=== PATIENT | female | born 1945 | race Asian ===

== ENCOUNTER 2020-03-26 20:56 | Inpatient (IN) | payer OTHER, SELFPAY ==
[~2020-03-26] VITALS: Ht 167.6 cm; Wt 80.7 kg
[2020-03-26 21:05] VITALS: BP 122/71
--- NOTE | 2020-03-26 21:09 | NUR ---
To Ed bed 04
--- NOTE | 2020-03-26 21:15 | NUR ---
Ever, son and coal trammer, sitting in lobby and instructed to come in when doctor needs him.
--- NOTE | 2020-03-26 21:20 | NUR ---
74 y/o female c/o blister on left ac x 3 days. pt states itchyness associated with blister. denies pain. skin warm and dry. cap refill less than 3 seconds. son at bedside. pmhx: HTN, DM, alzheimer's, right knee replacement, cancer ( unspecified) allx: PCN
--- NOTE | 2020-03-26 21:38 | NUR ---
ermd at bedside evaluating pt
--- NOTE | 2020-03-26 22:10 | NUR ---
EKG PERFORMED AT BEDSIDE WITH FAMILY MEMBER PRESENT. EKG READS SINUS RHYTHM @ 65
--- NOTE | 2020-03-26 22:20 | NUR ---
LAB AT BEDSIDE
--- NOTE | 2020-03-26 22:25 | NUR ---
PT AMBULATED TO RESTROOM WITH ASSIST, STEADY GAIT
[2020-03-26 22:27] LABS: BASOPHILS % (AUTO) 0.3 % (0.0-2.0); EOSINOPHILS % (AUTO) 0.2 % (0.0-4.0); HEMATOCRIT 36.3 % (36-48); HEMOGLOBIN 12.4 g/dL (12.0-16.0); LYMPHOCYTES # (AUTO) 1.4 K/uL (2.5-16.5); LYMPHOCYTES % (AUTO) 14.4 % (20.5-51.1); MEAN CORPUSCULAR HEMOGLOBIN 31 pg (27-31); MEAN CORPUSCULAR HGB CONC 34 g/dL (33-37); MEAN CORPUSCULAR VOLUME 90.1 fL (80-94); MONOCYTES % (AUTO) 10.8 % (1.7-9.3); NEUTROPHILS # (AUTO) 7.2 K/uL (1.8-7.7); NEUTROPHILS % (AUTO) 74.3 % (42.2-75.2); PLATELET COUNT (AUTO) 169 K/uL (140-450); RED BLOOD CELL COUNT(AUTO) 4.02 MIL/uL (4.20-5.40); RED CELL DISTRIBUTION WIDTH 14.2 % (11.6-13.7); WHITE BLOOD COUNT (AUTO) 9.7 K/uL (4.8-10.8)
--- NOTE | 2020-03-26 22:32 | NUR ---
pt taken to ct scan via w/c
[2020-03-26 22:41] LABS: ALBUMIN 2.7 g/dL (3.4-5.0); ANION GAP 13.5 (8-16); ASPARTATE AMINOTRANSFERASE 57 U/L (15-37); CHLORIDE 97 mmol/L (98-107); CREATININE 1.3 mg/dL (0.6-1.3); SODIUM SERUM 133 mmol/L (136-145); TOTAL BILIRUBIN 0.8 mg/dL (0.0-1.0); UREA NITROGEN, BLOOD 37 mg/dL (7-18)
[2020-03-26 22:43] LABS: GLUCOSE 41 mg/dL (74-106); POTASSIUM 2.5 mmol/L (3.5-5.1)
[2020-03-26] MEDS ORDERED: POTASSIUM CHLORIDE 10 MEQ TABER PO ONE (22:50)
[2020-03-26] MEDS ORDERED: POTASSIUM CHL 20MEQ/D5-NS 1,000 ML IV ONE (22:50)
[2020-03-26] MEDS ORDERED: DEXTROSE 50% 50 ML SYR IVP ONE (23:50)
--- NOTE | 2020-03-26 23:53 | NUR ---
ACCUCHECK: 33. ERMD MADE AWARE AND GAVE NEW ORDER.
[2020-03-26] MEDS ORDERED: DEXTROSE 50% 50 ML SYR IVP STA (23:55)
--- NOTE | 2020-03-27 00:26 | NUR ---
BRITTNEY GONZALEZ (SON). GAVE PHONE NUMBER TO CONTACT HIM FOR PATIENT UPDATES. [phone].
[2020-03-27] MEDS ORDERED: DEXTROSE 5% 1,000 ML IV ONE (00:30)
[2020-03-27 00:34] LABS: APPEARANCE,URINE CLEAR (CLEAR); BILIRUBIN,URINE NEGATIVE (NEGATIVE); BLOOD, URINE TRACE-I (NEGATIVE); COLOR,URINE YELLOW (YELLOW); LEUKOCYTE ESTERASE ,URINE 1+ (NEGATIVE); NITRITE, URINE NEGATIVE (NEGATIVE); PH,URINE 5.5 (5.0-9.0); UGLUCOSE NEGATIVE (NEGATIVE)
[2020-03-27] MEDS ORDERED: LYR25 PO (00:52)
[2020-03-27] MEDS ORDERED: FLUT1DSK2 IH (00:52)
[2020-03-27] MEDS ORDERED: CLON0.1T42 PO (00:52)
[2020-03-27] MEDS ORDERED: DOCU-299 PO (00:52)
[2020-03-27] MEDS ORDERED: CYCL0.052 OP (00:52)
[2020-03-27] MEDS ORDERED: CLOP75TA55 PO (00:52)
[2020-03-27] MEDS ORDERED: ISOS20TA13 PO (00:52)
[2020-03-27] MEDS ORDERED: SITA100T8 PO (00:52)
[2020-03-27] MEDS ORDERED: AZIL1TAB PO (00:52)
[2020-03-27] MEDS ORDERED: METO50TE2 PO (00:52)
[2020-03-27] MEDS ORDERED: DONE5TAB6 PO (00:52)
[2020-03-27] MEDS ORDERED: CLON0.5T PO (00:52)
[2020-03-27] MEDS ORDERED: HUM SUBQ (00:52)
[2020-03-27] MEDS ORDERED: [UNRECOGNIZED DRUG - CODE] OP (00:52)
[2020-03-27] MEDS ORDERED: PANT40EC PO (00:52)
[2020-03-27] MEDS ORDERED: ASPI-1884 PO (00:52)
[2020-03-27] MEDS ORDERED: GLIM4TAB42 PO (00:52)
[2020-03-27] MEDS ORDERED: LIP80 PO (00:52)
[2020-03-27] MEDS ORDERED: [UNRECOGNIZED DRUG - CODE] PO (00:52)
[2020-03-27] MEDS ORDERED: MIRA25TE PO (00:52)
[2020-03-27] MEDS ORDERED: TIOT18CA2 IH (00:52)
[2020-03-27] MEDS ORDERED: LID5T TP (00:52)
[2020-03-27] MEDS ORDERED: METF500T2 PO (00:52)
[2020-03-27] MEDS ORDERED: POTA8TER12 PO (00:52)
[2020-03-27 01:28] LABS: RBC,URINE 0-5 /HPF (0-5); WBC,URINE 20-60 /HPF (0-5)
[2020-03-27 01:45] VITALS: BP 123/65
--- NOTE | 2020-03-27 01:45 | NUR ---
RECEIVED PT , CONFUSED , FROM ER / [place] . WALKS TO BED W/ AA1 PERSON ASSIST . IV SITE INTACT AND PATENT . ADMISSION ASSESSMENT - DONE , MRSA SPECIMEN TO BE SENT TO LAB . SAFETY MEASURES IN PLACE - BED ALARM ON . ON TELE MONITOR - SR . W/ BLISTERS ON R ARM , W/ OLD SCABS ODN THE LEFT ARM . POC DISCUSSED BUT NEEDS RE INFORCEMENT DUE TO MENTAL STATUS . WILL CONT. TO MONITOR .
--- NOTE | 2020-03-27 01:45 | NUR ---
Patient will be admitted to care of DR GREENWOOD. Admited to TELEMETRY. Will go to room 108 A. Belongings list completed. Report to KELBY BLANCO.
[2020-03-27 04:00] VITALS: BP 123/76
--- NOTE | 2020-03-27 04:00 | NUR ---
WENT TO THE REST ROOM VOIDED FREELY .
--- NOTE | 2020-03-27 05:05 | NUR ---
BS 42 Addendum: 03/27/20 at 0521 by Alma Sears RN WILL GIVE ORANGE JUICE - WILL RE CHECK - BS - WILL REFER TO DR. GREENWOOD.
[2020-03-27] MEDS ORDERED: DEXTROSE 50% 50 ML SYR IVP ONE (05:11)
[2020-03-27] MEDS ORDERED: DEXTROSE 50% 50 ML SYR IVP PRN ×2 (05:40→08:15)
--- NOTE | 2020-03-27 06:45 | NUR ---
IV SITE - W/ RESISTANT - NOT PATENT - WILL RE INSERT IV CANULLA - D 50/50 JUST GIVEN . WILL RE CHECK THE BLOOD SUGAR
[2020-03-27] MEDS: BLOOD GLUCOSE MONITORING 1 DEV DEV FS SCH ×4 (06:48→20:33)
--- NOTE | 2020-03-27 07:30 | NUR ---
ENDORSED TO AM SHIFT - ROCEPHIN NOT STARTED DUE TO POT CHELLE HX PCN - WILL ENDORSE .
--- NOTE | 2020-03-27 07:30 | NUR ---
RECEIVED REPORT FROM NIGHT NURSE, PATIENT IS AWAKE, ON ROOM AIR, NO SIGNS AND SYMPTOMS OF HYPOGLYCEMIA, IV SITE INTACT AND PATENT ON RIGHT AC, RIGHT ARM BLISTER, LEFT ARM OLD SCAB, AMBULATORY, CONTINENT, NO DISTRESS NOTED, DENIES PAIN. SAFETY MEASURES IN PLACE, CALL LIGHT WITHIN REACH, WILL CONTINUE TO MONITOR.
[2020-03-27 08:00] VITALS: BP 139/73
[2020-03-27] MEDS ORDERED: guaiFENesin DM 200/20 MG-10 ML 10 ML UDC PO PRN (08:05)
[2020-03-27] MEDS ORDERED: DOCUSATE SODIUM 100 MG GELCAP PO PRN (08:05)
[2020-03-27] MEDS ORDERED: ZOLPIDEM 5 MG TAB PO PRN (08:05)
[2020-03-27] MEDS ORDERED: POTASSIUM CHLORIDE 40 MEQ, LIDOCAINE MPF 1% 25 MG in NACL 0.9% 250 ML IV PRN (08:05)
[2020-03-27] MEDS ORDERED: ONDANSETRON 4 MG/2 ML VIAL IM/IVP PRN (08:05)
[2020-03-27] MEDS ORDERED: HYDROcodone/APAP 7.5/325 MG 1 TAB PO PRN (08:05)
[2020-03-27] MEDS ORDERED: CLONIDINE HYDROCHLORIDE 0.1 MG TAB PO PRN (08:10)
[2020-03-27] MEDS ORDERED: INSULIN LISPRO SLIDING SCALE 100 UNITS/ML VIAL SUBQ PRN (08:15)
--- NOTE | 2020-03-27 08:44 | NUR ---
PATIENT HAS BEEN SCREENED AND CATEGORIZED HIGH NUTRITION RISK. PATIENT WILL BE SEEN WITHIN 1-2 DAYS OF ADMISSION. 03/27/20-03/28/[address]
[2020-03-27] MEDS ORDERED: NON-FORMULARY ITEM (Metformin HCl* (Glucophage Xr*) 500 MG) PO SCH (09:00)
[2020-03-27] MEDS: DONEPEZIL 10 MG TAB PO SCH (09:07)
[2020-03-27] MEDS: CLOPIDOGREL 75 MG TAB PO SCH (09:08)
[2020-03-27] MEDS: ASPIRIN 81 MG TAB.CHEW PO SCH (09:09)
[2020-03-27] MEDS: METOPROLOL SUCCINATE 50 MG TABER PO SCH (09:10)
[2020-03-27] MEDS: PANTOPRAZOLE 40 MG TABEC PO SCH (09:10)
--- NOTE | 2020-03-27 09:18 | NUR ---
SOCIAL WORK NOTE: Patient's Orientation Unable To Assess Information Provided By BRITTNEY GONZALEZ - SON Comments SW WAS UNABLE TO MEET PATIENT AT BEDSIDE. SW CONTACTED PATIENT'S SON, BRITTNEY TO COMPLETE ASSESSMENT. Healthcare Applications Analyst, Realtionship and Phone Number BRITTNEY VALENZUELA [phone] [facility] Power of Scientific Publications Editor No Does Patient Have a POLST No Identifying Problems Limited Or No Support Is A Social Work Consult Needed No Mandate Report Filed No Explanation Of Identifying Problems PATIENT IS A 74-YEAR-OLD FEMALE ADMITTED FOR HYPOGLYCEMIA AND FAILURE TO THRIVE. PATIENT HAS PMHX OF DIABETES AND HYPERTENSION. PER SON, PATIENT'S PRIMARY CAREGIVER'S CONDITION HAS BEEN DECLINING AND SON WISHES FOR PATIENT TO BE DISCHARGED TO SNF. PATIENT'S /PRIMARY CAREGIVER IS ALSO HOSPITALIZED AT [facility]. PATIENT'S SON STATED THAT HE HAS A PREFERRED SNF BUT DID NOT HAVE AVAILABLE INFORMATION ON HAND. SON PROVIDED PHONE NUMBER [phone] TO PREFERRED SNF. Admitted From Home Pre-Admission Level Of Functioning Status Total Care Level Of Functioning Comment PATIENT'S SON STATED THAT PATIENT WOULD REQUIRE ASSISTANCE WITH ALL ADLS. Prior Resources/Services Used In Last 12 Months No Prior Resources Used Prior DME Wheelchair Dialysis Comments N/A Living Situation Apartment Lives With Spouse Other Living Situation/Comment PATIENT LIVED WITH /PRIMARY THIRD MATE. Patient Had Caregiver No Home Support CG/Fam Unable Meet Need Explanation Of Home Support PATIENT'S PRIMARY CAREGIVER'S CONDITION IS ALSO DECLINING AND IS ALSO HOSPITALIZED AT [facility] AT THIS TIME. Financial Issues No Known Financial Issue Referral To The Financial Counselor Needed No Factors/Needs SNF/NH Placement Explanation And Or Other Factors Affecting/Possible DC Needs PATIENT'S SON REQUESTED THAT PATIENT BE DISCHARGED TO PREFERRED SNF. PATIENT'S SON DID NOT PROVIDE NAME OF SNF BUT PROVIDED PHONE NUMBER: [phone]. Pt/Rep Participated In Discharge Plan Yes Patient/Family Agress With Discharge Plan Yes Discharge Plan Comments TENTATIVE DISCHARGE PLAN IS FOR PATIENT TO BE DISCHARGED TO SNF. DC Plan Status Initiated Addendum: 03/27/20 at 1216 by Yury STRAUSS PONCHO CONTACTED FACILITY [phone] BUT WAS UNABLE TO REACH FACILITY. PONCHO LEFT . PONCHO CONTACTED PATIENT'S SON BRITTNEY GONZALEZ [phone] TO VERIFY WHAT PREFERRED [facility] FACILITY WAS CALLED. PONCHO LEFT BRITTNEY GARCIA. PONCHO WILL AWAIT TO HEAR BACK FROM SNF CONTACT AT [phone]. Addendum: 03/28/20 at 1048 by Yury STRAUSS PONCHO CONTACTED BRITTNEY GONZALEZ [phone] REGARDING DISCHARGE PLAN. PER BRITTNEY GONZALEZ, HIS CONTACT MAY BE [facility]. BRITTNEY STATED THAT HE WOULD BE AGREEABLE FOR PATIENT TO BE DISCHARGED TO [facility]. PONCHO NOTIFIED LANDSCAPE HORTICULTURE INSTRUCTOR AND FIXED INCOME DIRECTOR.
[2020-03-27] MEDS: clonazePAM 0.5 MG TAB PO SCH ×2 (09:21→20:35)
--- NOTE | 2020-03-27 09:26 | NUR ---
MEDICATIONS DUE GIVEN AT THIS TIME AND CHECK VITAL SIGNS PRIOR TO BP MEDICATION BP 139/73 LA 95. APPLIED TEGADERM TO LEFT ARM BLISTER AND JERO TEST DONE ON THE PATIENT PER DOCTORS ORDER.
--- NOTE | 2020-03-27 10:28 | NUR ---
PATIENT COVID 19 JERO TEST IS NEGATIVE.
--- NOTE | 2020-03-27 10:38 | NUR ---
DISCHARGE PLANNING: THIS IS A 74 Y/O FEMALE PATIENT FROM HOME, WHO CAME IN DUE TO LOW BLOOD SUGAR. PAST MEDICAL HISTORY INCLUDE DIABETES, HTN AND DEMENTIA. INITIAL DIAGNOSIS OF HYPOGLYCEMIA, FAILURE TO THRIVE. CURRENT LABS INCLUDE WBC 9.7, H/H 12.4/36.3, NA/K 133/2.5, BUN/CREA 37.1.3, GLU 41, ALB 2.7. ON ROCEPHIN. HEAD CT NEGATIVE. DC PLAN PENDING ON PATIENT'S RESPONSE TO TREATMENT. Addendum: 03/28/20 at 1124 by Sonia Jose CM DC PACKING MACHINE CAN FEEDER: GMAT INSTRUCTOR SPOKE TO PATIENTS FAMILY. FAMILY REQUEST IS TO SEND PATIENT TO [facility]. FAXED PATIENTS CLINICALS TO [facility]. WILL FOLLOW UP. Addendum: 03/28/20 at 1245 by Sonia Jose CM DC PACKING MACHINE CAN FEEDER: [facility] IS ABLE TO ACCEPT THIS PATIENT. SPOKE TO EMELYN THEY CAN ADMIT THIS PATIENT ON TuesdayMarch. Addendum: 03/28/20 at 1403 by Sonia Jose DC PACKING MACHINE CAN FEEDER: [facility] TO ROOM [address] GREENWOOD Addendum: 03/29/20 at 1122 by Jessica Duenas CM DC PLANNING PT SCHEDULED TO BE DISCHARGED ON TUESDAY TO [facility] ROOM NUMBER [id number] # TO GIVE REPORT [phone]. ARRANGED WHEELCHAIR TRANSPORT WITH [facility] TRANSP[facility] [phone] FOR TOMORROW 03/30/20 SPOKE WITH [facility] CONFIRMATION # [id number] SUPERVISING CHEF TIME 11AM. PER [facility] TRANSPORTER WILL CALL THE UNIT AND TO BRING PT TO THE LOBBY. NOTIFIED CHARGE NURSE MARCELO AND SAMANTHA BLANCO
[2020-03-27 11:02] LABS: BASOPHILS # (AUTO) 0.3 K/uL (0.00-0.22); BASOPHILS % (AUTO) 3.3 % (0.0-2.0); EOSINOPHILS % (AUTO) 0.3 % (0.0-4.0); HEMATOCRIT 38.5 % (36-48); LYMPHOCYTES # (AUTO) 0.7 K/uL (2.5-16.5); LYMPHOCYTES % (AUTO) 8.6 % (20.5-51.1); MEAN CORPUSCULAR HEMOGLOBIN 31 pg (27-31); MEAN CORPUSCULAR HGB CONC 34 g/dL (33-37); MONOCYTES # (AUTO) 0.7 K/uL (0.8-1.0); MONOCYTES % (AUTO) 8.2 % (1.7-9.3); NEUTROPHILS # (AUTO) 6.5 K/uL (1.8-7.7); NEUTROPHILS % (AUTO) 79.6 % (42.2-75.2); PLATELET COUNT (AUTO) 180 K/uL (140-450); RED BLOOD CELL COUNT(AUTO) 4.23 MIL/uL (4.20-5.40); RED CELL DISTRIBUTION WIDTH 14.2 % (11.6-13.7); WHITE BLOOD COUNT (AUTO) 8.1 K/uL (4.8-10.8)
[2020-03-27 11:08] LABS: ANION GAP 11.1 (8-16); CARBON DIOXIDE 29.3 mmol/L (21-32); CHLORIDE 99 mmol/L (98-107); CREATININE 1.2 mg/dL (0.6-1.3); GLUCOSE 97 mg/dL (74-106); POTASSIUM 3.4 mmol/L (3.5-5.1); PROTHROMBIN TIME 9.5 secs (10.8-13.4); SODIUM SERUM 136 mmol/L (136-145); UREA NITROGEN, BLOOD 30 mg/dL (7-18)
[2020-03-27 11:19] LABS: CHOL/HDL RATIO 3.2 (1-4.5); FREE T4 (FREE THYROXINE) 1.3 ng/dL (0.76-1.46); MAGNESIUM 2.2 mg/dL (1.8-2.4); PHOSPHORUS 3.3 mg/dL (2.5-4.9); THYROID STIMULATING HORMONE 1.32 uIU/mL (0.34-3.74)
[2020-03-27] MEDS ORDERED: BLOOD GLUCOSE MONITORING 1 DEV DEV FS SCH (11:30)
--- NOTE | 2020-03-27 11:44 | NUR ---
BS 120. NO COVERAGE. PATIENT NOTIFIED. VERBALIZED UNDERSTANDING.
[2020-03-27 12:00] VITALS: BP 126/69
--- NOTE | 2020-03-27 12:10 | NUR ---
PATIENT ECG RHYTHM CHANGED FROM SINUS RHYTHM TO ACCELERATED JUNCTIONAL INVERTED T
[2020-03-27] MEDS ORDERED: POTASSIUM CHLORIDE 10 MEQ TABER PO PRN (12:20)
--- NOTE | 2020-03-27 12:45 | NUR ---
MEDICATION DUE GIVEN PATIENT POTASSIUM LEVEL IS 3.4. PATIENT ABLE TO TOLERATE AND EATING WELL. NO DISTRESS NOTED AND DENIES PAIN. SAFETY MEASURES IN PLACE AND CALL LIGHT WITHIN REACH. WILL CONTINUE TO MONITOR.
--- NOTE | 2020-03-27 13:33 | NUR ---
03/27/20 RD INITIAL ASSESSMENT COMPLETED PLEASE REFER TO NUTRITION ASSESSMENT UNDER CARE ACTIVITY FOR ESTIMATED NUTRITIONAL NEEDS. 1. CONTINUE MECHANICAL SOFT DIET TOLERATED 2. CONSIDER ADDING CCHO 60GM ONCE BLOOD GLUCOSE IS WNL 3. PROVIDE ASSISTANCE WITH MEALS, IF NEEDED 4. RD TO FOLLOW-UP 3-5 DAYS, MODERATE RISK TODD ALAS RD
[2020-03-27 16:00] VITALS: BP 121/76
[2020-03-27] MEDS: INSULIN LISPRO SLIDING SCALE 100 UNITS/ML VIAL SUBQ PRN ×2 (16:23→20:35)
--- NOTE | 2020-03-27 16:23 | NUR ---
BLOOD SUGAR MONITORING DONE AT A LEVEL OF 169MG/DL INSULIN COVERAGE OF 2 UNITS GIVEN.
--- NOTE | 2020-03-27 18:24 | NUR ---
MADE ROUNDS AT THIS TIME PATIENT IS EATING AND SITTING NO DISTRESS NOTED, DENIES PAIN.
--- NOTE | 2020-03-27 19:00 | NUR ---
CHANGED IV SITE RIGHT HAND GAUGE 20 AND APPLIED TEGADERM ON THE LEFT UPPER ARM BLISTER.
--- NOTE | 2020-03-27 19:25 | NUR ---
ENDORSED TO [facility] NURSE FOR CONTINUITY OF CARE. PT IS STABLE
--- NOTE | 2020-03-27 19:26 | NUR ---
RECEIVED BEDSIDE REPORT FROM DAY RN, PATIENT IS AAOX2 VIETNAMESE UNDERSTANDS COOK ISLANDER WELL. ON ROOM AIR, RESPIRATIONS ARE EQUAL AND UNLABORED. LUNG SOUNDS ARE CLEAR. NO SIGNS AND SYMPTOMS OF HYPOGLYCEMIA, NURSE IS INSERTING NEW IV. RIGHT ARM BLISTER, LEFT ARM OLD SCAB, AMBULATORY, CONTINENT, NO DISTRESS NOTED, DENIES PAIN. CALL LIGHT WITHIN REACH, WILL CONTINUE TO MONITOR.
[2020-03-27 20:00] VITALS: BP 119/61
[2020-03-27] MEDS ORDERED: CRUSHER, PILL MC ONE (20:33)
[2020-03-27] MEDS: ATORVASTATIN 80 MG TAB PO SCH (20:34)
--- NOTE | 2020-03-27 20:35 | NUR ---
PT IS AAOX1 SELF, IS ROOM MATE. PT DOES NOT CALL FOR ASSISTANCE AND ATTEMPT TO GET OUT OF BED DESPITE CONSTANT EDUCATION. PT IS VERY FORGETFUL. BG 198 ADMINISTERED INSULIN PER SLIDING SCALE. VSS. TIFFANIE MEDICATION GIVEN. MED EDUCATION GIVEN PT VERBALIZED UNDERSTANDING. ALL NEEDS MET. SAFETY MEASURES ARE IN PLACE.
--- NOTE | 2020-03-27 22:50 | NUR ---
PT PULLED IV OUT WHEN GOING TO BATHROOM IV CATH IS INTACT. EDUCATED PT ON CALLING FOR ASSISTANCE. BED ALARM BACK ON. NEW IV ON R FA 22G ON FIRST ATTEMPT. SAFETY MEASURES IN PLACE. WILL CONTINUE TO MONITOR.
[2020-03-28] VITALS: BP 153/69
--- NOTE | 2020-03-28 | NUR ---
VITAL SIGNS ARE WITHIN NORMAL LIMITS. ALL SAFETY MEASURES ARE IN PLACE. CALL LIGHT IS WITHIN REACH. BED ALARM ON. WILL CONTINUE TO MONITOR.
--- NOTE | 2020-03-28 02:03 | NUR ---
ROUNDS MADE. PT IS SLEEPING COMFORTABLY IN BED WITH EYES CLOSED. CHEST RISE AND FALL NOTED. ALL SAFETY MEASURES IN PLACE. WILL CONTINUE TO MONITOR.
[2020-03-28 04:00] VITALS: BP 147/71
--- NOTE | 2020-03-28 04:13 | NUR ---
VITAL SIGNS ARE WITHIN NORMAL LIMITS. ALL NEEDS MET. CALL LIGHT IS WITHIN REACH. WILL CONTINUE TO MONITOR.
[2020-03-28 05:30] LABS: BASOPHILS % (AUTO) 0.3 % (0.0-2.0); EOSINOPHILS % (AUTO) 0.5 % (0.0-4.0); HEMATOCRIT 38.8 % (36-48); HEMOGLOBIN 13.1 g/dL (12.0-16.0); LYMPHOCYTES # (AUTO) 1.2 K/uL (2.5-16.5); LYMPHOCYTES % (AUTO) 12.3 % (20.5-51.1); MEAN CORPUSCULAR HEMOGLOBIN 31 pg (27-31); MEAN CORPUSCULAR HGB CONC 34 g/dL (33-37); MONOCYTES # (AUTO) 0.9 K/uL (0.8-1.0); NEUTROPHILS # (AUTO) 7.6 K/uL (1.8-7.7); NEUTROPHILS % (AUTO) 77.9 % (42.2-75.2); PLATELET COUNT (AUTO) 198 K/uL (140-450); RED BLOOD CELL COUNT(AUTO) 4.26 MIL/uL (4.20-5.40); RED CELL DISTRIBUTION WIDTH 14.1 % (11.6-13.7); WHITE BLOOD COUNT (AUTO) 9.8 K/uL (4.8-10.8)
[2020-03-28 05:41] LABS: ANION GAP 17.2 (8-16); CHLORIDE 100 mmol/L (98-107); CREATININE 1.3 mg/dL (0.6-1.3); GLUCOSE 166 mg/dL (74-106); POTASSIUM 4.2 mmol/L (3.5-5.1); SODIUM SERUM 139 mmol/L (136-145); UREA NITROGEN, BLOOD 23 mg/dL (7-18)
[2020-03-28] MEDS: INSULIN LISPRO SLIDING SCALE 100 UNITS/ML VIAL SUBQ PRN ×4 (06:45→20:20)
[2020-03-28] MEDS: BLOOD GLUCOSE MONITORING 1 DEV DEV FS SCH ×4 (06:45→20:16)
--- NOTE | 2020-03-28 07:18 | NUR ---
GAVE BEDSIDE REPORT TO DAY RN. PT ENDORSED IN STABLE CONDITION.
--- NOTE | 2020-03-28 07:20 | NUR ---
RECEIVED REPORT FROM NIGHT NURSE PATIENT IS AWAKE AND ALERT, ON ROOM AIR AMBULATORY, IV SITES ON RIGHT FA INTACT AND PATENT, WITH RIGHT ARM BLISTER COVERED WITH TEGADERM, AND LEFT ARM OLD SCAB. URINE FOR URINE CULTURE AND DRUG SCREEN UNABLE TO COLLECT. SAFETY MEASURES IN PLACE AND CALL LIGHT WITHIN REACH. WILL CONTINUE TO MONITOR.
[2020-03-28 08:00] VITALS: BP 129/61
[2020-03-28 08:09] LABS: T4 (THYROXINE) 8.6 ug/dL (4.5-12.0)
--- NOTE | 2020-03-28 08:30 | NUR ---
PHYSICAL THERAPY DINE AND PATIENT ABLE TO WALK WITHOUT DISTRESS AND TOLERATED WELL.
--- NOTE | 2020-03-28 08:45 | NUR ---
MEDICATIONS DUE GIVEN CHECK VITAL SIGNS BP 126/55 NC 83 NO DISTRESS NOTED AND DENIES PAIN, APPLIED VERSATEL AND COVERED WITH ISLAND DRESSING ON THE RIGHT ARM BLISTERS. SAFETY MEASURES IN PLACE AND CALL LIGHT WITHIN REACH. WILL CONTINUE TO MONITOR.
[2020-03-28] MEDS: PANTOPRAZOLE 40 MG TABEC PO SCH (08:47)
[2020-03-28] MEDS: ASPIRIN 81 MG TAB.CHEW PO SCH (08:47)
[2020-03-28] MEDS: DONEPEZIL 10 MG TAB PO SCH (08:48)
[2020-03-28] MEDS: CLOPIDOGREL 75 MG TAB PO SCH (08:48)
[2020-03-28] MEDS: METOPROLOL SUCCINATE 50 MG TABER PO SCH (08:48)
[2020-03-28] MEDS: clonazePAM 0.5 MG TAB PO SCH ×2 (08:50→20:23)
[2020-03-28] MEDS: ACETAMINOPHEN 325 MG TAB PO PRN ×2 (10:04→23:48)
--- NOTE | 2020-03-28 10:04 | NUR ---
PATIENT COMPLAINS OF MILD HEADACHE AND GAVE MEDICATION.
--- NOTE | 2020-03-28 11:40 | NUR ---
BLOOD SUGAR TAKEN AT A LEVEL OF 173 MG/DL. INSULIN COVERAGE GIVEN
[2020-03-28 12:00] VITALS: BP 139/74
--- NOTE | 2020-03-28 12:02 | NUR ---
late entry -- Potassium Chloride Infusion completed at 0145 03/26/20.
--- NOTE | 2020-03-28 12:30 | NUR ---
MADE ROUNDS AT THIS TIME VITAL SIGNS TAKEN AND PATIENT FEEL A HEADACHE OF 2/10.
--- NOTE | 2020-03-28 15:00 | NUR ---
PATIENT IS CONFUSED AND WANTS TO GO HOME CHANGED HER CLOTHES AND INSISTING TO GO HOME WITH HER , PATIENT IS CRYING.DR GREENWOOD IS AWARE AND ORDER FOR A CONSULT WITH DR MIRZA FOR DEMENTIA.1:[address] ME[address] PL[address] AND CALL LIGHT WITHIN REACH WILL CONTINUE TO MONITOR.
[2020-03-28 16:00] VITALS: BP 162/74
--- NOTE | 2020-03-28 16:30 | NUR ---
PATIENT BLOOD SUGAR 231 MG/DL INSULIN COVERAGE GIVEN.
[2020-03-28 16:38] LABS: BARBITURATE, URINE NEGATIVE ng/ml (NEG <=200); BENZODIAZEPINE, URINE NEGATIVE ng/mL (NEG <=200); CANNABINOID, URINE NEGATIVE ng/mL (NEG <=50); COCAINE, URINE NEGATIVE ng/mL (NEG <=300); OPIATE, URINE POSITIVE ng/mL (NEG <=2000); PHENCYCLIDINE SCREEN,URINE NEGATIVE ng/mL (NEG <=25)
--- NOTE | 2020-03-28 16:45 | NUR ---
PATIENT IV OUT AT THIS TIME AND PATIENT IS AGITATED TRIED TO LEAVE HER ROOM.
--- NOTE | 2020-03-28 17:00 | NUR ---
PATIENT HAS BEEN AGITATED AND TRIED TO LEAVE THE HOSPITAL WITH HER . TRANSFERRED TO A DIFFERENT ROOM.
[2020-03-28] MEDS ORDERED: LORazepam 2 MG/ML VIAL IM/IVP SCH (17:10)
--- NOTE | 2020-03-28 17:55 | NUR ---
ATIVAN 2MG/ML VIAL 0.25 ML IM/IVP GIVEN, CHECK VITAL SIGNS PRIOR TO MEDICATION BP 1137/67 MI 81. PATIENT IS STABLE AND CALM. ABLE TO REST AND EAT. SAFETY MEASURES IN PLACE, CALL LIGHT WITHIN REACH. WILL CONTINUE TO MONITOR.
--- NOTE | 2020-03-28 19:30 | NUR ---
ENDORSED TO NIGHT NURSE FOR CONTINUITY OF CARE PT IS STABLE
--- NOTE | 2020-03-28 19:31 | NUR ---
RECEIVED REPORT FROM DAY RNBELLA. PT AOX1 ON ROOM AIR. NO S/S RESPIRATORY DISTRESS. PT HAS LEFT ARM OLD SCAB, KAYLA BLISTER WITH VERSATILE. SAFETY MEASURES IN PLACE. CALL LIGHT WITHIN REACH. WILL CONTINUE TO MONITOR
[2020-03-28] MEDS: ATORVASTATIN 80 MG TAB PO SCH (20:23)
--- NOTE | 2020-03-28 20:26 | NUR ---
ADMINISTERED SCHEDULED MEDS. PT BLOOD SUGAR 198, GAVE 2 UNITS INSULIN SUBQ PER SLIDING SCALE. PT TOLERATED WELL. WILL CONTINUE TO MONITOR
--- NOTE | 2020-03-28 23:48 | NUR ---
GAVE PRN TYLENOL FOR PT C/O OF HEADACHE, TOLERATED WELL. WILL CONTINUE TO MONITOR
[2020-03-29] VITALS: BP 151/69
--- NOTE | 2020-03-29 02:00 | NUR ---
PT ASLEEP IN BED. RESPIRATIONS EVEN AND UNLABORED. NO DISTRESS NOTED. WILL CONTINUE TO MONITOR
--- NOTE | 2020-03-29 04:25 | NUR ---
PT ASLEEP IN BED. NO DISTRESS NOTED. WILL CONTINUE TO MONITOR
[2020-03-29] MEDS: BLOOD GLUCOSE MONITORING 1 DEV DEV FS SCH ×4 (06:11→21:16)
[2020-03-29] MEDS: INSULIN LISPRO SLIDING SCALE 100 UNITS/ML VIAL SUBQ PRN ×3 (07:04→21:16)
[2020-03-29 07:17] LABS: BASOPHILS % (AUTO) 0.5 % (0.0-2.0); EOSINOPHILS # (AUTO) 0.1 K/uL (0-0.4); EOSINOPHILS % (AUTO) 1.7 % (0.0-4.0); HEMATOCRIT 36.5 % (36-48); HEMOGLOBIN 12.3 g/dL (12.0-16.0); LYMPHOCYTES # (AUTO) 1.3 K/uL (2.5-16.5); LYMPHOCYTES % (AUTO) 20.8 % (20.5-51.1); MEAN CORPUSCULAR HEMOGLOBIN 31 pg (27-31); MEAN CORPUSCULAR HGB CONC 34 g/dL (33-37); MEAN CORPUSCULAR VOLUME 90.6 fL (80-94); MONOCYTES # (AUTO) 0.5 K/uL (0.8-1.0); MONOCYTES % (AUTO) 8.2 % (1.7-9.3); NEUTROPHILS # (AUTO) 4.4 K/uL (1.8-7.7); NEUTROPHILS % (AUTO) 68.8 % (42.2-75.2); PLATELET COUNT (AUTO) 230 K/uL (140-450); RED BLOOD CELL COUNT(AUTO) 4.03 MIL/uL (4.20-5.40); RED CELL DISTRIBUTION WIDTH 14.3 % (11.6-13.7); WHITE BLOOD COUNT (AUTO) 6.4 K/uL (4.8-10.8)
--- NOTE | 2020-03-29 07:20 | NUR ---
RECEIVED REPORT FROM NIGHT NURSE FOR CONTINUITY OF CARE, PT IS STABLE, PT RESTING IN BED, PT AWAKE AND INTRODUCE SELF, PT HAS NO IV ACCESS, PT AAOX1, PT HAS LEFT UA SCABS AND KAYLA BLISTER, BED IN LOW POSITION, SAFETY MEASURES IN PLACE, WILL CONTINUE TO MONITOR.
--- NOTE | 2020-03-29 07:20 | NUR ---
ENDORSED PT TO DAY RN FOR CONTINUITY OF CARE. PT IS IN STABLE CONDITION
[2020-03-29 07:21] LABS: ANION GAP 16.6 (8-16); CARBON DIOXIDE 27.5 mmol/L (21-32); CHLORIDE 100 mmol/L (98-107); CREATININE 1.2 mg/dL (0.6-1.3); GLUCOSE 186 mg/dL (74-106); POTASSIUM 4.1 mmol/L (3.5-5.1); SODIUM SERUM 140 mmol/L (136-145); UREA NITROGEN, BLOOD 23 mg/dL (7-18)
[2020-03-29 08:00] VITALS: BP 115/64
[2020-03-29] MEDS: PANTOPRAZOLE 40 MG TABEC PO SCH (09:12)
[2020-03-29] MEDS: CLOPIDOGREL 75 MG TAB PO SCH (09:12)
[2020-03-29] MEDS: ASPIRIN 81 MG TAB.CHEW PO SCH (09:13)
[2020-03-29] MEDS: METOPROLOL SUCCINATE 50 MG TABER PO SCH (09:13)
[2020-03-29] MEDS: clonazePAM 0.5 MG TAB PO SCH ×2 (09:14→21:13)
[2020-03-29] MEDS: DONEPEZIL 10 MG TAB PO SCH (09:16)
--- NOTE | 2020-03-29 09:26 | NUR ---
ADMINISTERED SCHEDULED MEDICATION, MEDICATION EDUCATION PROVIDED, PT VERBALIZED UNDERSTANDING, PT TOLERATED WELL, PT IS STABLE, CALL LIGHT WITHIN REACH, WILL CONTINUE TO MONITOR.
--- NOTE | 2020-03-29 10:52 | NUR ---
DR JOHNSON ASSESS PT AND RECEIVED ORDER FOR NORMAL SALINE AT 60 ML/H,
[2020-03-29] MEDS: NACL 0.9% 1,000 ML IV SCH (11:09)
--- NOTE | 2020-03-29 11:20 | NUR ---
UPDATED PT SON, BRITTNEY GONZALEZ, ON PT CONDITION AND PLAN TO TRANSFER PT TO [facility] TOMORROW.
--- NOTE | 2020-03-29 11:51 | NUR ---
ADMINISTERED 4 UNITS OF HUMALOG FOR BLOOD GLUCOSE OF 250, MEDICATION EDUCATION PROVIDED, PT VERBALIZED UNDERSTANDING, PT TOLERATED WELL, PT IS STABLE, CALL LIGHT WITHIN REACH, WILL CONTINUE TO MONITOR.
--- NOTE | 2020-03-29 14:01 | NUR ---
NOTIFIED DR JOHNSON PT CRYING AND STATES LEFT LEG HURTS, RECEIVED TORB FOR X-RAY OF LEFT LEG. WILL INPUT ORDER AND CARRY IT OUT.
--- NOTE | 2020-03-29 14:09 | NUR ---
ADMINISTERED NORCO FOR LEG PAIN 11/06, MEDICATION EDUCATION PROVIDED, PT TOLERATED WELL, PT IS STABLE, CALL LIGHT WITHIN REACH, WILL CONTINUE TO MONITOR.
[2020-03-29 16:00] VITALS: BP 140/56
--- NOTE | 2020-03-29 16:30 | NUR ---
BLOOD GLUCOSE IS 150, NO COVERAGE NEEDED
--- NOTE | 2020-03-29 17:00 | NUR ---
PT SITTING IN BED, NO SIGNS OF DISTRESS NOTED, CALL LIGHT WITHIN REACH, PT IS STABLE, WILL CONTINUE TO MONITOR.
--- NOTE | 2020-03-29 19:30 | NUR ---
RECEIVED BEDSIDE REPORT FROM DAY SHIFT NURSE FOR CONTINUITY OF CARE. PT IS AWAKE, CONFUSED. PT WANTS TO SEE AND WAS TAKEN TO THE ROOM TO SEE THAT THE WAS THERE. PT IS NOW BACK IN BED. ON RA WITH BREATHING UNLABORED. PT IS AMBULATORY WITH A STEADY GAIT. SKIN IS WARM AND DRY. SCAB ON THE LEFT ARM AND BLISTER ON THE RIGHT ARM WITH DRESSING INTACT. IV IS PATENT AND INTACT IN THE RIGHT FOREARM 24 GAUGE RUNNING NS AT 60 ML PER HOUR. PT IS A FALL RISK AND FALL PRECAUTIONS ARE IN PLACE. BED IS IN THE LOWEST POSITION AND CALL LIGHT IS WITHIN REACH. PLAN OF CARE DISCUSSED.
--- NOTE | 2020-03-29 19:35 | NUR ---
ENDORSE PT TO NIGHT NURSE FOR CONTINUITY OF CARE, PT IS STABLE.
--- NOTE | 2020-03-29 20:30 | NUR ---
PT WAS ASKING TO BE WITH IN HIS ROOM. PT WAS TRANFERRED TO THE ROOM BY THE CHARGE NURSE AFTER SPEAKING WITH THE FORMULA TECHNICIAN. PT IS NOW IN THE NEW ROOM AND WALKING AROUND PUTTING HER BELONGINGS TOGETHER. PT IS STABLE AND GAIT IS STEADY.
--- NOTE | 2020-03-29 20:31 | NUR ---
SITTER IS AT BEDSIDE TO KEEP CLOSE OBSERVATION ON THE PT.
--- NOTE | 2020-03-29 20:40 | NUR ---
BELONGINGS WERE RETURNED TO PT BY CHARGE NURSE AFTER RECEIVING THEM FROM SECURITY.
[2020-03-29] MEDS: ATORVASTATIN 80 MG TAB PO SCH (21:12)
--- NOTE | 2020-03-29 21:16 | NUR ---
CHECKED PT'S BS AND THE READING WAS 197. PT WAS GIVEN TWO UNITS OF HUMALOG INSULIN PER SLIDING SCALE. MEDICATION EDUCATION WAS PROVIDED AND PT VERBALIZED UNDERSTANDING.
--- NOTE | 2020-03-29 23:00 | NUR ---
PT IS VERY CONFUSED AND IS ENCOURAGE BY , WHO IS ALSO A PT, TO LEAVE THE HOSPITAL. BOTH PT'S HAVE DRESSED THEMSELVES IN THEIR NORMAL CLOTHES AND WANT TO LEAVE. PT EDUCATION WAS PROVIDED. PT IS BACK IN BED AND STABLE AT THIS TIME.
[2020-03-30] VITALS: BP 143/79
--- NOTE | 2020-03-30 | NUR ---
CONSENT FOR CT OF THE CHEST WITH CONTRAST WAS SIGNED BY THE PHYSICIAN. WILL CALL CT SHORTLY FOR THE PROCEDURE.
--- NOTE | 2020-03-30 00:21 | NUR ---
PT IS ASLEEP IN THE BED. NO DISTRESS NOTED. PT IS FINALLY CALM. IV IS PATENT AND INTACT. BED IS IN THE LOWEST POSITION.
--- NOTE | 2020-03-30 00:30 | NUR ---
CALLED BUSINESS SOLUTIONS ANALYST AND INFORMED THEM THAT THE CONSENT WAS SIGNED BY THE PHYSICIAN AND PT. BUSINESS SOLUTIONS ANALYST SAID THEY WILL NEED A 20 GAUGE IV IN THE AC IN ORDER TO DO THE PROCEDURE. WILL PLACE IV IN PATIENT SHORTLY.
--- NOTE | 2020-03-30 01:54 | NUR ---
PT WAS AWOKEN BY AND ENCOURAGED TO LEAVE THE HOSPITAL. WITH SOME ENCOURAGEMENT PT IS BACK TO BED AND NOW ASLEEP. CHEST RISE AND FALL IS SYMMETRICAL. BREATHING IS UNLABORED. PT IS STABLE.
--- NOTE | 2020-03-30 02:30 | NUR ---
ATTEMPTED TO PLACE 20 GAUGE IV IN PATIENT TWO TIMES AND WAS UNSUCCESSFUL. CHARGE NURSE, MANDY RN, ALSO ATTEMPTED TO PLACE IV ONCE AND WAS NOT SUCCESSFUL. IV IS VERY HARD TO PLACE AND VEINS WERE NOT VERY VISIBLE. PT TOLERATED ATTEMPTS TO PLACE IV WELL.
--- NOTE | 2020-03-30 03:10 | NUR ---
CALLED ER TO ASK IF SOMEONE WOULD BE ABLE TO PLACE IV IN PATIENT. ER SAID THAT SOMEONE WILL BE HERE SHORTLY TO ATTEMPT IV.
--- NOTE | 2020-03-30 03:30 | NUR ---
ER NURSE, HARDIK, IS AT THE BEDSIDE ATTEMPTING TO PLACE 20 GAUGE IV IN THE AC. ER NURSE ATTEMPTED TWO TIMES AND WAS UNSUCCESSFUL. PT IS NOW CRYING AND NO MORE ATTEMPTS WILL BE MADE. PT IS NOW RESTING IN SEMI FOWLERS POSITION AND WAS GIVEN WARM BLANKETS FOR COMFORT.
[2020-03-30] MEDS: NACL 0.9% 1,000 ML IV SCH (03:35)
[2020-03-30] MEDS: BLOOD GLUCOSE MONITORING 1 DEV DEV FS SCH ×2 (06:21→12:03)
[2020-03-30] MEDS: INSULIN LISPRO SLIDING SCALE 100 UNITS/ML VIAL SUBQ PRN ×2 (06:23→12:08)
--- NOTE | 2020-03-30 06:23 | NUR ---
PT'S BS WAS 188 AND PT WAS GIVEN 2 UNITS HUMALOG INSULIN ORDERED PER SLIDING SCALE.
[2020-03-30 06:55] LABS: BASOPHILS % (AUTO) 0.6 % (0.0-2.0); EOSINOPHILS # (AUTO) 0.1 K/uL (0-0.4); EOSINOPHILS % (AUTO) 1.9 % (0.0-4.0); HEMATOCRIT 35.5 % (36-48); HEMOGLOBIN 12.1 g/dL (12.0-16.0); LYMPHOCYTES # (AUTO) 1.5 K/uL (2.5-16.5); LYMPHOCYTES % (AUTO) 23.6 % (20.5-51.1); MEAN CORPUSCULAR HEMOGLOBIN 31 pg (27-31); MEAN CORPUSCULAR HGB CONC 34 g/dL (33-37); MEAN CORPUSCULAR VOLUME 90.2 fL (80-94); MONOCYTES # (AUTO) 0.5 K/uL (0.8-1.0); NEUTROPHILS # (AUTO) 4.1 K/uL (1.8-7.7); NEUTROPHILS % (AUTO) 65.9 % (42.2-75.2); PLATELET COUNT (AUTO) 251 K/uL (140-450); RED BLOOD CELL COUNT(AUTO) 3.93 MIL/uL (4.20-5.40); RED CELL DISTRIBUTION WIDTH 14.1 % (11.6-13.7); WHITE BLOOD COUNT (AUTO) 6.2 K/uL (4.8-10.8)
[2020-03-30 07:01] LABS: ANION GAP 11.9 (8-16); CARBON DIOXIDE 26.2 mmol/L (21-32); CHLORIDE 104 mmol/L (98-107); CREATININE 1.1 mg/dL (0.6-1.3); GLUCOSE 192 mg/dL (74-106); POTASSIUM 4.1 mmol/L (3.5-5.1); SODIUM SERUM 138 mmol/L (136-145); UREA NITROGEN, BLOOD 21 mg/dL (7-18)
--- NOTE | 2020-03-30 07:15 | NUR ---
ENDORSED PT TO DAY SHIFT NURSE FOR CONTINUITY OF CARE. PT IS STABLE. PLAN OF CARE DISCUSSED. FALL PRECAUTIONS IN PLACE.
--- NOTE | 2020-03-30 07:20 | NUR ---
REC'D BEDSIDE ENDORSEMENT FROM NIGHTSHIFT NURSE. PATIENT IS RESTING IN BED. RESPIRATIONS EVEN AND UNLABORED. SKIN WARM AND DRY TO TOUCH. NO SIGNS OF DISTRESS NOTED. WILL CONT W/ PLAN OF CARE. SAFETY MEASURES IN PLACE. WILL CONT TO MONITOR.
[2020-03-30 08:00] VITALS: BP 136/79
[2020-03-30] MEDS: METOPROLOL SUCCINATE 50 MG TABER PO SCH (09:15)
[2020-03-30] MEDS: PANTOPRAZOLE 40 MG TABEC PO SCH (09:16)
[2020-03-30] MEDS: ASPIRIN 81 MG TAB.CHEW PO SCH (09:16)
[2020-03-30] MEDS: DONEPEZIL 10 MG TAB PO SCH (09:16)
--- NOTE | 2020-03-30 09:19 | NUR ---
FOLLOW UP TRANSPORT AND SPOKE TO ALISSON SHE PROVIDED ME A NEW CONFIRMATION #[id number] VIA JEYSON.
[2020-03-30] MEDS: clonazePAM 0.5 MG TAB PO SCH (09:22)
[2020-03-30] MEDS: CLOPIDOGREL 75 MG TAB PO SCH (09:23)
--- NOTE | 2020-03-30 09:41 | NUR ---
ADMINISTERED PRESCRIBED MEDS PER MD ORDER. PATIENT TOLERATED WELL. REINFORCEMENT NEEDED, SAFETY MEASURES IN PLACE. WILL CONT TO MONITOR.
[2020-03-30] MEDS ORDERED: ATI.5 PO (09:44)
[2020-03-30 10:47] VITALS: BP 136/79
--- NOTE | 2020-03-30 11:30 | NUR ---
PT BLOOD SUGAR IS 242. PRN INSULIN WILL BE ADMINISTERED WITH NEXT MEAL. WILL CONTINUE TO MONITOR
--- NOTE | 2020-03-30 12:08 | NUR ---
ADMINISTERED SCHED MED PRESCRIBED PER MD ORDER. PT TOLERATED WELL. MEDICATION EDUCATION PERFORMED. PT NEEDS REINFORCEMENT. SAFETY MEASURES IN PLACE. WILL CONTINUE TO MONITOR
--- NOTE | 2020-03-30 13:15 | NUR ---
PATIENT IS RESTING IN BED. RESPIRATIONS ARE EVEN AND UNLABORED. NO SIGNS OF DISTRESS NOTED. SAFETY MEASURES IN PLACE. WILL CONT TO MONITOR.
--- NOTE | 2020-03-30 14:32 | NUR ---
PATIENT DISCHARGED, PICKED UP BY [facility] AND REPORT GIVEN TO TRANSPORT. TRANSPORT TEAM VERIFIED UNDERSTANDING. LFA INTACT IV, ID BAND AND ALLERGY BAND REMOVED. DRESSING CHANGE PERFORMED FOR BLISTER ON LEFT ARM. RIGHT ARM HAS CLOSED SCABS MANAGER STAR. GATHERED PATIENT BELONGINGS. PATIENT CHANGED INTO HER OWN CLOTHES. MASK PROVIDED TO PATIENT. PATIENT STABLE TO GO TO [facility] ROOM 46C.
== END 2020-03-30 14:20 | DRG 637 ==
LOC: MED 20:56 → MTU 03-27 00:28
PROVIDERS: ADMIT Family Medicine; ATTEND Family Medicine
DX: E11.649 Type 2 diabetes mellitus with hypoglycemia without coma (principal); G93.41 Metabolic encephalopathy; E43 Unspecified severe protein-calorie malnutrition; E87.1 Hypo-osmolality and hyponatremia; N39.0 Urinary tract infection, site not specified; Z68.28 Body mass index [BMI] 28.0-28.9, adult; F32.9 Major depressive disorder, single episode, unspecified; F41.1 Generalized anxiety disorder; Z20.828 Contact with and (suspected) exposure to other viral communicable diseases; Z88.0 Allergy status to penicillin; I10 Essential (primary) hypertension; G30.9 Alzheimer's disease, unspecified; F02.80 Dementia in other diseases classified elsewhere, unspecified severity, without behavioral disturbance, psychotic disturbance, mood disturbance, and anxiety; E87.6 Hypokalemia; E78.5 Hyperlipidemia, unspecified; K21.9 Gastro-esophageal reflux disease without esophagitis; R74.01 Elevation of levels of liver transaminase levels; E86.0 Dehydration; D71 Functional disorders of polymorphonuclear neutrophils; R13.10 Dysphagia, unspecified; G31.9 Degenerative disease of nervous system, unspecified; M79.605 Pain in left leg; Z79.82 Long term (current) use of aspirin; Z79.899 Other long term (current) drug therapy; Z79.84 Long term (current) use of oral hypoglycemic drugs; V89.2XXA Person injured in unspecified motor-vehicle accident, traffic, initial encounter; Y93.89 Activity, other specified; Y99.8 Other external cause status; Y92.410 Unspecified street and highway as the place of occurrence of the external cause
CPT/HCPCS: 36415; 70450; 71045; 73590; 80048; 80053; 80305; 81001; 82150; 82948; 83036; 83690; 83735; 83880; 84100; 84436; 84439; 84443; 84479; 84484; 85025; 85610; 85730; 87081; 87086; 93005; 96361; 96374; 97110; 97116; 97161-GP; 97530; 99291; J0696; J2001; J2060; J3480; J7030; J7060; Q0092

== ENCOUNTER 2020-08-23 13:35 | Emergency (ER) | payer OTHER ==
[~2020-08-23] VITALS: Ht 157.5 cm; Wt 59.9 kg
[~2020-08-23 13:35] MED LIST: ASPI-1884 PO; ATI.5 PO; AZIL1TAB PO; CLON-268 PO; CLON0.5T PO; CLOP75TA55 PO; CYCL0.052 OP; DOCU-299 PO; DONE5TAB6 PO; FLUT1DSK2 IH; HUM SUBQ; ISOS20TA13 PO; LID5T TP; LIP80 PO; LYR25 PO; METO50TE2 PO; MIRA25TE PO; PANT40EC PO; POTA8TER12 PO; TIOT18CA2 IH; [UNRECOGNIZED DRUG - CODE] OP; [UNRECOGNIZED DRUG - CODE] PO
[2020-08-23 13:39] VITALS: BP 170/73
--- NOTE | 2020-08-23 13:42 | NUR ---
74 Y/O F [place] [facility] [place] PA[place] AND SOB X 3DAYS. PT REPORTS HEADACHE BUT IN NO ACUTE DISTRESS. S1 & S2 PRESENT. NO EDEMA NOTED. TTP ON RUQ. PT IS ESTONIAN SPEAKING. PMH: METABOLIC ENCEPHALOPATHY, UNSTEADINESS ON FEET, COGNITIVE COMMUNICATION DEFECIT, DM2, HF, PRIMARY HTN, HYPERLIPIDEMIA, POLYNUEOPATHY, DEMENTIA, ASTHMA, OVERACTIVE BLADDER, GERD. RX: ASPIRIN, LIPITOR, PREGABLIN, PROTONIX, SPIRIVA, METOPROLOL, ADVAIR ALLX: PCN DNR
--- NOTE | 2020-08-23 14:20 | NUR ---
LAB AT BEDSIDE.
--- NOTE | 2020-08-23 14:29 | NUR ---
X-Ray at bedside.
--- NOTE | 2020-08-23 14:29 | NUR ---
RAD AT BEDSIDE
[2020-08-23 14:30] LABS: BASOPHILS # (AUTO) 0.1 K/uL (0.00-0.22); BASOPHILS % (AUTO) 1.2 % (0.0-2.0); EOSINOPHILS # (AUTO) 0.2 K/uL (0-0.4); EOSINOPHILS % (AUTO) 2.8 % (0.0-4.0); HEMATOCRIT 36.7 % (36-48); HEMOGLOBIN 12.4 g/dL (12.0-16.0); LYMPHOCYTES # (AUTO) 1.4 K/uL (2.5-16.5); LYMPHOCYTES % (AUTO) 22.7 % (20.5-51.1); MEAN CORPUSCULAR HEMOGLOBIN 32 pg (27-31); MEAN CORPUSCULAR HGB CONC 34 g/dL (33-37); MEAN CORPUSCULAR VOLUME 95.8 fL (80-94); MONOCYTES # (AUTO) 0.4 K/uL (0.8-1.0); MONOCYTES % (AUTO) 6.8 % (1.7-9.3); NEUTROPHILS # (AUTO) 4.2 K/uL (1.8-7.7); NEUTROPHILS % (AUTO) 66.5 % (42.2-75.2); PLATELET COUNT (AUTO) 224 K/uL (140-450); RED BLOOD CELL COUNT(AUTO) 3.83 MIL/uL (4.20-5.40); RED CELL DISTRIBUTION WIDTH 14.4 % (11.6-13.7); WHITE BLOOD COUNT (AUTO) 6.3 K/uL (4.8-10.8)
[2020-08-23 15:12] LABS: ALBUMIN 3.7 g/dL (3.4-5.0); ANION GAP 12.8 (8-16); ASPARTATE AMINOTRANSFERASE 13 U/L (15-37); CARBON DIOXIDE 27.2 mmol/L (21-32); CHLORIDE 102 mmol/L (98-107); CREATININE 1.2 mg/dL (0.6-1.3); GLUCOSE 227 mg/dL (74-106); LIPASE 141 U/L (73-393); SODIUM SERUM 138 mmol/L (136-145); TOTAL BILIRUBIN 0.7 mg/dL (0.0-1.0); UREA NITROGEN, BLOOD 34 mg/dL (7-18)
--- NOTE | 2020-08-23 16:10 | NUR ---
CONNECTED DR. HANNAH WITH [facility] PHONE TO COMMUNICATE WITH PT
--- NOTE | 2020-08-23 17:31 | NUR ---
REPORT GIVEN TO BELLA SU AT [facility] FACILITY MADE AWARE PT ETA.
[2020-08-23 17:36] VITALS: BP 160/58
--- NOTE | 2020-08-23 17:36 | NUR ---
Patient discharged with v/s stable. Written and verbal after care instructions given and explained. Patient verbalized understanding. Ambulance Transport ON WAY to care home. All questions addressed prior to discharge. Advised to follow up with PMD.
--- NOTE | 2020-08-23 17:36 | NUR ---
[facility] TRANSPORTATION AT BEDSIDE FOR FULL ROLL INSPECTOR.
== END 2020-08-23 17:36 ==
LOC: MED 13:35
DX: R07.9 Chest pain, unspecified (principal); R51.9 Headache, unspecified; E11.9 Type 2 diabetes mellitus without complications; I10 Essential (primary) hypertension; Z88.0 Allergy status to penicillin; Z79.899 Other long term (current) drug therapy
CPT/HCPCS: 36415; 71045; 80053; 83690; 84484; 85025; 93005; 99285

== ENCOUNTER 2021-08-09 14:38 | Emergency (ER) | payer OTHER ==
[~2021-08-09] VITALS: Ht 152.4 cm; Wt 73.1 kg
[~2021-08-09 14:38] MED LIST changes: +ASPI-1749 PO; -ASPI-1884 PO; -CLON-268 PO; +CLON0.1T16 PO; +POTA8TAB17 PO; -POTA8TER12 PO
[2021-08-09 14:40] VITALS: BP 163/83
[2021-08-09] MEDS ORDERED: ONDANSETRON 4 MG/2 ML VIAL ONE (14:54)
[2021-08-09] MEDS ORDERED: ONDANSETRON 4 MG/2 ML VIAL IVP ONE (14:55)
--- NOTE | 2021-08-09 15:00 | NUR ---
75 Y/O FEMALE BIBA [place] [facility] [place] AND EPIGASTRIC PAIN. WITH NAUSEA AND VOMITING. ABD SOFT NON TENDER. SKIN WARM AND DRY. PATIENT POSITIONED FOR COMFORT; HOB ELEVATED; BEDRAILS UP X2; BED DOWN. ER MD MADE AWARE OF PT STATUS. PMH:DM, CHF, HLD, HTN, DEMENTIA, AFIB ALLERGIES:PCN
--- NOTE | 2021-08-09 15:00 | NUR ---
[facility] UNIT TEACHER PHONE USED WITH DR WYATT. TRANSLATION #[id number]
--- NOTE | 2021-08-09 15:15 | NUR ---
BLOOD WORK COLLECTED AND SENT TO LAB
[2021-08-09 15:58] LABS: BASOPHILS % (AUTO) 0.5 % (0.0-2.0); EOSINOPHILS # (AUTO) 0.1 K/uL (0-0.4); EOSINOPHILS % (AUTO) 1.1 % (0.0-4.0); HEMATOCRIT 35.4 % (36-48); HEMOGLOBIN 11.7 g/dL (12.0-16.0); LYMPHOCYTES # (AUTO) 1.7 K/uL (2.5-16.5); LYMPHOCYTES % (AUTO) 19.2 % (20.5-51.1); MEAN CORPUSCULAR HEMOGLOBIN 30 pg (27-31); MEAN CORPUSCULAR HGB CONC 33 g/dL (33-37); MEAN CORPUSCULAR VOLUME 91.6 fL (80-94); MONOCYTES # (AUTO) 0.5 K/uL (0.8-1.0); MONOCYTES % (AUTO) 5.8 % (1.7-9.3); NEUTROPHILS # (AUTO) 6.5 K/uL (1.8-7.7); NEUTROPHILS % (AUTO) 73.4 % (42.2-75.2); PLATELET COUNT (AUTO) 203 K/uL (140-450); RED BLOOD CELL COUNT(AUTO) 3.86 MIL/uL (4.20-5.40); RED CELL DISTRIBUTION WIDTH 14.3 % (11.6-13.7); WHITE BLOOD COUNT (AUTO) 8.9 K/uL (4.8-10.8)
[2021-08-09 16:19] LABS: ALBUMIN 3.5 g/dL (3.4-5.0); ANION GAP 11.8 (8-16); ASPARTATE AMINOTRANSFERASE 20 U/L (15-37); CARBON DIOXIDE 28.1 mmol/L (21-32); CHLORIDE 102 mmol/L (98-107); CREATININE 1.3 mg/dL (0.6-1.3); GLUCOSE 151 mg/dL (74-106); POTASSIUM 3.9 mmol/L (3.5-5.1); SODIUM SERUM 138 mmol/L (136-145); TOTAL BILIRUBIN 0.4 mg/dL (0.0-1.0); UREA NITROGEN, BLOOD 27 mg/dL (7-18)
[2021-08-09 16:36] LABS: BILIRUBIN,URINE NEGATIVE (NEGATIVE); BLOOD, URINE 1+ (NEGATIVE); LEUKOCYTE ESTERASE ,URINE 3+ (NEGATIVE); NITRITE, URINE POSITIVE (NEGATIVE); PH,URINE 6.5 (5.0-9.0); UGLUCOSE NEGATIVE (NEGATIVE)
[2021-08-09 16:39] LABS: APPEARANCE,URINE CLOUDY (CLEAR); COLOR,URINE YELLOW (YELLOW)
[2021-08-09] MEDS ORDERED: LEVOFLOXACIN 500 MG/D5W PREMIX 100 ML IV ONE (16:50)
[2021-08-09 16:52] LABS: RBC,URINE TOO NUMEROUS TO COUN /HPF (0-5); WBC,URINE NONE SEEN /HPF (0-5)
[2021-08-09] MEDS ORDERED: NITR100C7 PO (16:59)
--- NOTE | 2021-08-09 17:10 | NUR ---
SPOKE TO FAMILY, AND THEY ARE UNABLE TO PROVIDE TRANSPORTATION.
--- NOTE | 2021-08-09 17:17 | NUR ---
SPOKE TO CODIE AT [facility] OF PATIENTS DISCHARGE AND RETURN.
[2021-08-09 18:54] VITALS: BP 134/71
--- NOTE | 2021-08-09 18:54 | NUR ---
Patient discharged with INFORMATION FOR URINARY TRACT INFECTION, ADULT v/s stable. Written and verbal after care instructions given. Patient alert, oriented and verbalized understanding of instructions. Wheel Chair Assisted with to skilled nursing. All questions addressed prior to discharge. ID band removed. Patient advised to follow up with PMD. Rx of MACROBID 100 MG CAPSULE given. Opportunity to ask questions provided and answered.
--- NOTE | 2021-08-09 18:54 | NUR ---
The patient's care was reviewed and supervised by Billy Dunn RN.
== END 2021-08-09 18:54 | disposition home or self-care (01) ==
LOC: MED 14:38
DX: N39.0 Urinary tract infection, site not specified (principal)
CPT/HCPCS: 36415; 71045; 80053; 81001; 83880; 84484; 85025; 87040; 87086; 93005; 96365; 96375; 99285; J1956; J2405; Q0092

== ENCOUNTER 2022-04-20 05:45 | Emergency (ER) | payer OTHER ==
[~2022-04-20] VITALS: Ht 152.4 cm; Wt 72.6 kg
[~2022-04-20 05:45] MED LIST changes: +NITR100C7 PO
--- NOTE | 2022-04-20 05:49 | NUR ---
TED ELLIS. TAKEN TO BED 1
[2022-04-20 05:50] VITALS: BP 191/85
[2022-04-20] MEDS ORDERED: ACETAMINOPHEN EXTRA STRENGTH 500 MG TAB PO ONE (06:10)
--- NOTE | 2022-04-20 06:15 | NUR ---
PT AMBULATED TO RESTROOM WITHOUT ASSISTANCE.
--- NOTE | 2022-04-20 07:30 | NUR ---
Report received from BELLA Murillo. Received patient resting in position of comfort. engine monitor in place. Meds orders to be given. 76 y/o F BIBA from [facility] c/o fall at unknown time. Patient A&Ox4, ambulatory, reports LLQ abdominal pain; states 5/10, cramping/constant, tender to palpation. Denies nausea, vomiting. engine monitor in place. Bed locked in lowest position, side rails x 1. PMH: HTN, dementia, fall hx, DM2, alzheimer's Allergies: PCN
[2022-04-20] MEDS ORDERED: ACETAMINOPHEN EXTRA STRENGTH 500 MG TAB ONE (07:33)
--- NOTE | 2022-04-20 08:53 | NUR ---
Med list: mirtazapine, metformin, insulin lispro, glipzide, 81ASA, bepreve, clonidine, dulcolax, memantine, pregabalin, advair diskus, metoprolol, spiriva, oxybutynin, atorvastatin Allergies: PCN DNR
[2022-04-20 09:10] VITALS: BP 135/68
--- NOTE | 2022-04-20 10:20 | NUR ---
Patient ambulated from bed onto wheelchair unassisted and buckled in place. Discharge pending transportation (son) arrival.
[2022-04-20] MEDS ORDERED: LID5T TP (10:21)
[2022-04-20] MEDS ORDERED: SULF-59 PO (10:21)
--- NOTE | 2022-04-20 10:30 | NUR ---
CALLED [facility] TO GIVE REPORT. INFORMED THAT PTS SON IS PICKING HER UP.
[2022-04-20] MEDS ORDERED: ONDANSETRON 4 MG ODT PO ONE (10:55)
[2022-04-20] MEDS ORDERED: ONDANSETRON 4 MG ODT ONE (10:55)
[2022-04-20] MEDS ORDERED: ONDA-188 PO (10:55)
[2022-04-20] MEDS ORDERED: LIDOCAINE 5% 1 EA PATCH TP ONE (11:08)
[2022-04-20] MEDS ORDERED: LIDOCAINE 5% 1 EA PATCH TP STA (11:08)
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
== END 2022-04-20 11:13 | disposition home or self-care (01) ==
LOC: MED 05:45
DX: S20.20XA Contusion of thorax, unspecified, initial encounter (principal); N39.0 Urinary tract infection, site not specified; E11.9 Type 2 diabetes mellitus without complications; I10 Essential (primary) hypertension; G30.9 Alzheimer's disease, unspecified; F03.90 Unspecified dementia, unspecified severity, without behavioral disturbance, psychotic disturbance, mood disturbance, and anxiety; Z88.0 Allergy status to penicillin; Z79.899 Other long term (current) drug therapy; Z85.9 Personal history of malignant neoplasm, unspecified; Z79.4 Long term (current) use of insulin; Z79.82 Long term (current) use of aspirin; X58.XXXA Exposure to other specified factors, initial encounter; Y93.89 Activity, other specified; Y92.89 Other specified places as the place of occurrence of the external cause; Y99.8 Other external cause status
CPT/HCPCS: 71250; 81002; 99284; Q0162

== ENCOUNTER 2023-08-26 13:00 | Inpatient (IN) | payer OTHER ==
[~2023-08-26] VITALS: Ht 165.1 cm; Wt 68.0 kg
[~2023-08-26 13:00] MED LIST changes: +ONDA-188 PO; +SULF-59 PO
[2023-08-26 14:38] VITALS: BP 155/91; PULSE 85; RESP 16; TEMP 98.2; O2SAT 95
[2023-08-26 14:58] VITALS: O2SAT 95
[2023-08-26 15:08] LABS: BASOPHILS # (AUTO) 0.1 K/uL (0.00-0.22); BASOPHILS % (AUTO) 0.5 % (0.0-2.0); HEMATOCRIT 36.9 % (36-48); HEMOGLOBIN 12.3 g/dL (12.0-16.0); LYMPHOCYTES # (AUTO) 0.8 K/uL (2.5-16.5); LYMPHOCYTES % (AUTO) 8.5 % (20.5-51.1); MEAN CORPUSCULAR HEMOGLOBIN 29 pg (27-31); MEAN CORPUSCULAR HGB CONC 33 g/dL (33-37); MONOCYTES # (AUTO) 0.4 K/uL (0.8-1.0); MONOCYTES % (AUTO) 4.2 % (1.7-9.3); NEUTROPHILS # (AUTO) 8.7 K/uL (1.8-7.7); NEUTROPHILS % (AUTO) 86.8 % (42.2-75.2); PLATELET COUNT (AUTO) 295 K/uL (140-450); RED BLOOD CELL COUNT(AUTO) 4.19 MIL/uL (4.20-5.40); RED CELL DISTRIBUTION WIDTH 15.3 % (11.6-13.7)
[2023-08-26 15:29] LABS: CALCIUM 9.5 mg/dL (8.5-10.1); CHLORIDE 97 mmol/L (98-107); CREATININE 1.6 mg/dL (0.6-1.3); GLUCOSE 196 mg/dL (74-106); SODIUM SERUM 139 mmol/L (136-145); UREA NITROGEN, BLOOD 37 mg/dL (7-18)
[2023-08-26 15:34] LABS: ALBUMIN 3.7 g/dL (3.4-5.0); BILIRUBIN,DIRECT 0.1 mg/dL (0.0-0.3); TOTAL BILIRUBIN 0.6 mg/dL (0.0-1.0); TOTAL PROTEIN, SERUM 8.6 g/dL (6.4-8.2)
[2023-08-26 15:45] LABS: FLU A ANTIGEN negative (NEGATIVE); FLU B ANTIGEN NEGATIVE (NEGATIVE)
[2023-08-26] MEDS: NACL 0.9% 1,000 ML IV ONE (16:29)
[2023-08-26 17:04] LABS: APPEARANCE,URINE CLOUDY (CLEAR); BILIRUBIN,URINE NEGATIVE (NEGATIVE); BLOOD, URINE 2+ (NEGATIVE); COLOR,URINE YELLOW (YELLOW); LEUKOCYTE ESTERASE ,URINE 3+ (NEGATIVE); NITRITE, URINE NEGATIVE (NEGATIVE); PROTEIN,URINE 2+ (NEGATIVE); UGLUCOSE NEGATIVE (NEGATIVE); UROBILINOGEN,URINE 0.2 EU/dL (0.2 - 1)
[2023-08-26 17:25] LABS: BACTERIA,URINE 4+ /HPF (None Seen); RBC,URINE >100 /HPF (0-5); SQUAMOUS EPITHELIAL CELL,UR None Seen /LPF (0-3 (FEW)); WBC,URINE TOO MANY TO COUNT /HPF (0-5)
[2023-08-26] MEDS: OLANZapine 10 MG VIAL IM ONE (17:39)
[2023-08-26 18:16] VITALS: O2SAT 95
[2023-08-26] MEDS ORDERED: HYDROcodone/APAP 5/325 MG 1 TAB TAB PO PRN (18:35)
[2023-08-26] MEDS ORDERED: ONDANSETRON 4 MG/2 ML VIAL IVP PRN (18:35)
[2023-08-26] MEDS ORDERED: ACETAMINOPHEN 325 MG TAB PO PRN (18:35)
[2023-08-26] MEDS ORDERED: DEXTROSE 50% 50 ML SYR IVP PRN (18:45)
[2023-08-26] MEDS: CIPROFLOXACIN 400 MG/200ML-D5W 200 ML IV ONE (19:19)
[2023-08-26 19:46] VITALS: O2SAT 96
[2023-08-26] MEDS: NACL 0.9% 1,000 ML IV SCH (21:06)
[2023-08-26] MEDS: ATORVASTATIN 80 MG TAB PO SCH (21:18)
[2023-08-26] MEDS: BLOOD GLUCOSE MONITORING 1 DEV DEV FS SCH (21:21)
[2023-08-26] MEDS: metroNIDAZOLE 500 MG/NS PREMIX 100 ML IV SCH (21:24)
[2023-08-26] MEDS: INSULIN LISPRO SLIDING SCALE 100 UNITS/ML VIAL SUBQ PRN (21:28)
[2023-08-27 00:03] VITALS: O2SAT 98
[2023-08-27 04:51] VITALS: O2SAT 96
[2023-08-27 08:00] VITALS: BP 106/68; RESP 18; TEMP 97.1; O2SAT 98
[2023-08-27 09:00] VITALS: PULSE 76; RESP 18; O2SAT 100
[2023-08-27] MEDS: DONEPEZIL 10 MG TAB PO SCH (09:00)
[2023-08-27] MEDS: CLOPIDOGREL 75 MG TAB PO SCH (09:55)
[2023-08-27] MEDS: PANTOPRAZOLE 40 MG TABEC PO SCH (09:56)
[2023-08-27] MEDS: ASPIRIN 81 MG TAB.CHEW PO SCH (09:56)
[2023-08-27] MEDS: ISOSORBIDE DINITRATE 20 MG TAB PO SCH (09:56)
[2023-08-27] MEDS: clonazePAM 0.5 MG TAB PO SCH (09:58)
[2023-08-27] MEDS: METOPROLOL SUCCINATE 50 MG TABER PO SCH (09:59)
[2023-08-27] MEDS: PREGABALIN 25 MG CAP PO SCH (09:59)
[2023-08-27] MEDS: LEVOFLOXACIN 250 MG/D5 PREMIX 50 ML IV SCH (11:55)
[2023-08-27 16:00] VITALS: BP 110/63; PULSE 72; RESP 18; TEMP 97; O2SAT 100
[2023-08-27 20:00] VITALS: BP 102/58; PULSE 63; RESP 20; TEMP 97.3; O2SAT 95
[2023-08-28 06:55] LABS: BASOPHILS % (AUTO) 0.6 % (0.0-2.0); EOSINOPHILS # (AUTO) 0.1 K/uL (0-0.4); EOSINOPHILS % (AUTO) 2.3 % (0.0-4.0); HEMATOCRIT 28.6 % (36-48); HEMOGLOBIN 9.6 g/dL (12.0-16.0); LYMPHOCYTES # (AUTO) 1.7 K/uL (2.5-16.5); LYMPHOCYTES % (AUTO) 27.2 % (20.5-51.1); MEAN CORPUSCULAR HEMOGLOBIN 29 pg (27-31); MEAN CORPUSCULAR HGB CONC 34 g/dL (33-37); MEAN CORPUSCULAR VOLUME 87.5 fL (80-94); MONOCYTES # (AUTO) 0.4 K/uL (0.8-1.0); MONOCYTES % (AUTO) 6.9 % (1.7-9.3); NEUTROPHILS # (AUTO) 3.8 K/uL (1.8-7.7); PLATELET COUNT (AUTO) 213 K/uL (140-450); RED BLOOD CELL COUNT(AUTO) 3.27 MIL/uL (4.20-5.40); RED CELL DISTRIBUTION WIDTH 15.1 % (11.6-13.7); WHITE BLOOD COUNT (AUTO) 6.1 K/uL (4.8-10.8)
[2023-08-28 07:47] LABS: ALANINE AMINOTRANSFERASE 18 U/L (12-78); ALBUMIN 2.7 g/dL (3.4-5.0); ALKALINE PHOSPHATASE 70 U/L (50-136); ANION GAP 13.2 (8-16); ASPARTATE AMINOTRANSFERASE 14 U/L (15-37); CALCIUM 8.1 mg/dL (8.5-10.1); CARBON DIOXIDE 24.4 mmol/L (21-32); CHLORIDE 111 mmol/L (98-107); CREATININE 1.4 mg/dL (0.6-1.3); GLUCOSE 135 mg/dL (74-106); POTASSIUM 3.6 mmol/L (3.5-5.1); SODIUM SERUM 145 mmol/L (136-145); TOTAL BILIRUBIN 0.5 mg/dL (0.0-1.0); TOTAL PROTEIN, SERUM 6.2 g/dL (6.4-8.2); UREA NITROGEN, BLOOD 40 mg/dL (7-18)
[2023-08-28 08:00] VITALS: BP 149/70; PULSE 56; RESP 18; TEMP 96.9; O2SAT 95
[2023-08-28 08:14] VITALS: PULSE 63; RESP 20; O2SAT 95
[2023-08-28 16:00] VITALS: BP 139/64; PULSE 60; RESP 18; TEMP 97.9; O2SAT 95
[2023-08-28 20:00] VITALS: BP 138/68; PULSE 70; RESP 18; TEMP 96.7; O2SAT 99
[2023-08-29 07:05] LABS: BASOPHILS % (AUTO) 0.4 % (0.0-2.0); EOSINOPHILS # (AUTO) 0.1 K/uL (0-0.4); EOSINOPHILS % (AUTO) 1.2 % (0.0-4.0); HEMATOCRIT 33.2 % (36-48); HEMOGLOBIN 11.2 g/dL (12.0-16.0); LYMPHOCYTES % (AUTO) 31.2 % (20.5-51.1); MEAN CORPUSCULAR HEMOGLOBIN 30 pg (27-31); MEAN CORPUSCULAR HGB CONC 34 g/dL (33-37); MONOCYTES # (AUTO) 0.5 K/uL (0.8-1.0); NEUTROPHILS # (AUTO) 3.9 K/uL (1.8-7.7); NEUTROPHILS % (AUTO) 60.2 % (42.2-75.2); PLATELET COUNT (AUTO) 254 K/uL (140-450); RED BLOOD CELL COUNT(AUTO) 3.77 MIL/uL (4.20-5.40); RED CELL DISTRIBUTION WIDTH 15.3 % (11.6-13.7); WHITE BLOOD COUNT (AUTO) 6.5 K/uL (4.8-10.8)
[2023-08-29 07:15] LABS: ALANINE AMINOTRANSFERASE 20 U/L (12-78); ALBUMIN 2.9 g/dL (3.4-5.0); ALKALINE PHOSPHATASE 80 U/L (50-136); ANION GAP 11.7 (8-16); ASPARTATE AMINOTRANSFERASE 18 U/L (15-37); CALCIUM 7.8 mg/dL (8.5-10.1); CARBON DIOXIDE 25.4 mmol/L (21-32); CHLORIDE 110 mmol/L (98-107); CREATININE 1.3 mg/dL (0.6-1.3); GLUCOSE 152 mg/dL (74-106); POTASSIUM 3.1 mmol/L (3.5-5.1); SODIUM SERUM 144 mmol/L (136-145); TOTAL BILIRUBIN 0.4 mg/dL (0.0-1.0); TOTAL PROTEIN, SERUM 6.6 g/dL (6.4-8.2); UREA NITROGEN, BLOOD 30 mg/dL (7-18)
[2023-08-29 07:31] VITALS: PULSE 68; RESP 20; O2SAT 100
[2023-08-29 08:00] VITALS: BP 161/89; PULSE 66; RESP 18; TEMP 96.5; O2SAT 99
[2023-08-29] MEDS: POTASSIUM CHLORIDE 40 MEQ, LIDOCAINE 1% 25 MG in NACL 0.9% 250 ML IV SCH (09:14)
[2023-08-29 16:00] VITALS: BP 190/98; PULSE 83; RESP 18; TEMP 97.7; O2SAT 99
[2023-08-29 20:00] VITALS: BP 152/81; PULSE 60; RESP 19; TEMP 96.6; O2SAT 100; O2SAT 98
[2023-08-29] MEDS: ZOLPIDEM 5 MG TAB PO PRN (20:27)
[2023-08-30 06:50] LABS: BASOPHILS % (AUTO) 0.7 % (0.0-2.0); EOSINOPHILS # (AUTO) 0.1 K/uL (0-0.4); EOSINOPHILS % (AUTO) 0.8 % (0.0-4.0); HEMATOCRIT 32.5 % (36-48); HEMOGLOBIN 11.1 g/dL (12.0-16.0); LYMPHOCYTES # (AUTO) 1.6 K/uL (2.5-16.5); LYMPHOCYTES % (AUTO) 22.8 % (20.5-51.1); MEAN CORPUSCULAR HEMOGLOBIN 30 pg (27-31); MEAN CORPUSCULAR HGB CONC 34 g/dL (33-37); MEAN CORPUSCULAR VOLUME 87.2 fL (80-94); MONOCYTES # (AUTO) 0.5 K/uL (0.8-1.0); NEUTROPHILS # (AUTO) 4.8 K/uL (1.8-7.7); NEUTROPHILS % (AUTO) 68.7 % (42.2-75.2); PLATELET COUNT (AUTO) 246 K/uL (140-450); RED BLOOD CELL COUNT(AUTO) 3.73 MIL/uL (4.20-5.40); RED CELL DISTRIBUTION WIDTH 14.8 % (11.6-13.7); WHITE BLOOD COUNT (AUTO) 6.9 K/uL (4.8-10.8)
[2023-08-30 07:26] LABS: ALANINE AMINOTRANSFERASE 20 U/L (12-78); ALKALINE PHOSPHATASE 73 U/L (50-136); ANION GAP 15.5 (8-16); ASPARTATE AMINOTRANSFERASE 23 U/L (15-37); CALCIUM 8.1 mg/dL (8.5-10.1); CARBON DIOXIDE 23.9 mmol/L (21-32); CHLORIDE 110 mmol/L (98-107); CREATININE 1.1 mg/dL (0.6-1.3); GLUCOSE 154 mg/dL (74-106); POTASSIUM 3.4 mmol/L (3.5-5.1); SODIUM SERUM 146 mmol/L (136-145); TOTAL BILIRUBIN 0.5 mg/dL (0.0-1.0); TOTAL PROTEIN, SERUM 6.8 g/dL (6.4-8.2); UREA NITROGEN, BLOOD 23 mg/dL (7-18)
[2023-08-30 08:00] VITALS: BP 123/71; PULSE 80; RESP 24; TEMP 97.1; O2SAT 98
[2023-08-30 08:42] VITALS: PULSE 68; RESP 20; O2SAT 100
[2023-08-30] MEDS ORDERED: NITR100C1 PO (09:48)
[2023-08-30] MEDS: POTASSIUM CHLORIDE 10 MEQ TABER PO SCH (10:19)
[2023-08-30] MEDS: DEXT 5% / NACL 0.45% 1,000 ML IV SCH (13:19)
== END 2023-08-30 15:50 | DRG 371 ==
LOC: MED 13:00 → MMU 18:42 → MTU 20:01
PROVIDERS: ADMIT Student in an Organized Health Care Education/Training Program; ATTEND Student in an Organized Health Care Education/Training Program
PROC: 05HY33Z Insertion of Infusion Device into Upper Vein, Percutaneous Approach (ICD-10-PCS; principal; 2023-08-26)
PROC: B54NZZA Ultrasonography of Left Upper Extremity Veins, Guidance (ICD-10-PCS; 2023-08-26)
DX: A04.9 Bacterial intestinal infection, unspecified (principal); N17.0 Acute kidney failure with tubular necrosis; R65.10 Systemic inflammatory response syndrome (SIRS) of non-infectious origin without acute organ dysfunction; N30.90 Cystitis, unspecified without hematuria; I12.9 Hypertensive chronic kidney disease with stage 1 through stage 4 chronic kidney disease, or unspecified chronic kidney disease; Z20.822 Contact with and (suspected) exposure to COVID-19; E87.6 Hypokalemia; F03.90 Unspecified dementia, unspecified severity, without behavioral disturbance, psychotic disturbance, mood disturbance, and anxiety; E11.22 Type 2 diabetes mellitus with diabetic chronic kidney disease; N18.31 Chronic kidney disease, stage 3a; E86.0 Dehydration; Z88.0 Allergy status to penicillin; Z79.2 Long term (current) use of antibiotics; Z79.82 Long term (current) use of aspirin; Z79.899 Other long term (current) drug therapy; Z79.4 Long term (current) use of insulin
CPT/HCPCS: 36415; 76770; 80048; 80053; 80076; 81001; 82948; 83690; 84484; 85025; 87081; 87086; 87186; 93005; 96372; 99285; J0744; J1956; J2001; J3480; J3490; J7030; Q0092